=== PATIENT | male | born 1955 | race Caucasian/White ===

== ENCOUNTER 2024-09-09 08:37 | Outpatient (RCR) | payer MEDICARE, SELFPAY ==
--- NOTE | 2024-09-09 10:20 | CTCCONSULT_ITS ---
[facility] [address] [place], [place] [address] Consultation Note Date: 09/09/2024 MR#: [id number] Name: ILAN SETH : 1955 Dx: C61 Malignant neoplasm of prostate Attending physician. Kaylie Parks [employer] Referring physician. Yoshi Malone MD Reason for consultation. Patient with prostate CA diagnosis, PSA 19.6 [place] group 2 referred to the cancer treatment center. History present illness. Patient is a gentleman with symptoms of prostatism underwent biopsy of his prostate Biopsy 02/26/2024 Del group 2 grade 7(3+4) in right lobe. Left lobe negative. . PSA 6 26 24 19.46. Had not had any recent imaging studies but prior Abdominal CT 08/18/2022 primary hepatocellular disease no sign of mets. Has C-spine MRI and plain x-ray showing postop changes from prior cervical surgery degenerative changes June 2023. Was given the choice of having radical surgery and radiation and patient chose to have radiation therapy. Patient is currently seeing Dr. Malone who initiated Lupron injection 2 weeks ago. Patient has not had any imaging studies done this year. Patient now referred for radiation therapy consultation. Past Medical History: COPD prostatism Meds. Sargeant 10 twice daily Xanax Flomax Allergies none to meds Social History: Patient lives with sister; has recently quit heavy smoking; drinks 4 beers a day marijuana as needed Review of Systems: Weight gain due to reduced smoking. Physical Exam: General: Adequate nourished appearing gentleman in no acute distress HEENT: Atraumatic normocephalic extraocular muscle intact no oral lesion no cervical or supraclavicular adenopathy CV: Chest clear to auscultation heart regular rate and rhythm ABD: Soft no organomegaly or tenderness EXT: No cyanosis clubbing or edema Assessment:1. PSA 19.6 group 2 prostate CA grade7 (3+4) right lobe 2. Has been initiated on Lupron injections ADT under Dr. Malone's direction. 3. No recent radiographs, and bone scan and CT scan will be ordered now. 4. Discussed patient about radiation therapy to the pelvis prostate region in the absence of distant mets. Will see patient after radiographs completed. 5. Thank you very much for allowing me to evaluate this patient. Cc: ABELINO Bryan MD Electronically signed by: Tim Diana MD, DABR 09/09/2024 10:17 AM
== END 2024-10-03 23:59 | disposition home or self-care (01) ==
LOC: SCTC 08:37
PROVIDERS: Referring Provider Surgery; Visit Provider Radiology Therapeutic Radiology
DX: C61 Malignant neoplasm of prostate (principal); Z79.818 Long term (current) use of other agents affecting estrogen receptors and estrogen levels
CPT/HCPCS: 99213; G0463

== ENCOUNTER → 2024-09-24 | Outpatient (CLI) | payer MEDICARE, SELFPAY ==
--- NOTE | 2024-09-24 12:30 | XR_ITS ---
Examination: Bone scan whole body, radioisotope Date and time of exam: September 24, 2024 1241 hours INDICATIONS: Diagnosis malignant neoplasm prostate this month, staging Technique: Study has been performed with intravenous administration of 26 mci 99M technetium MDP. Anterior, posterior whole body images are obtained. Images have been obtained including the lower extremities. Findings: Increased isotope accumulation posterior lower right rib, likely the 11th rib Minor asymmetric uptake about the feet IMPRESSION: Positive bone scan but nonspecific Recommend right rib series follow-up
== END | disposition home or self-care (01) ==
PROVIDERS: PCP Nurse Practitioner Family; Referring Provider Radiology Therapeutic Radiology; Visit Provider Radiology Therapeutic Radiology
DX: R93.7 Abnormal findings on diagnostic imaging of other parts of musculoskeletal system (principal); C61 Malignant neoplasm of prostate
CPT/HCPCS: 78306; A9503

== ENCOUNTER → 2024-10-02 | Outpatient (CLI) | payer MEDICARE, SELFPAY ==
--- NOTE | 2024-10-02 13:00 | XR_ITS ---
Examination: CT abdomen with intravenous contrast CT pelvis with intravenous contrast 2-D coronal reconstructions 2-D sagittal reconstructions Date and time of exam:October 02, 2024 at 1304 hrs. Indications: Diagnosis malignant neoplasm prostate, elevated PSA, history infrarenal abdominal aortic aneurysm AP dimension 4.0 cm mediolateral dimension 4.[address] study August 18, 2022. CTDI: vol (mGy) 26.9 DLP: (mGycm) 1090 Technique: Multiple axial sections of the abdomen and pelvis have been obtained. 64 slice high-resolution scanner used. 3 mm axial sections have been obtained, post intravenous injection 60 cc Isovue-370 2-D sagittal, coronal reconstructions obtained. Low dose protocols were performed. One or more of the following dose reduction techniques were used; automated exposure control, adjustment of the mA and/or KV according to patient size, use of iterative reconstruction technique. Findings: Diffuse fatty infiltration throughout the liver No gallstones Spleen is not enlarged No pancreatic or adrenal mass No hydronephrosis Infrarenal abdominal aortic aneurysm, AP dimension 4.3 cm mediolateral dimension 4.0 cm Normal appendix No bowel obstruction Colonic diverticulosis, no diverticulitis. Normal seminal vesicles AP prostate dimension 3.3 cm Prostate calcifications Mild thickening of urinary bladder wall No abdominal or pelvic lymphadenopathy Grade 1 spondylolisthesis L5 on S1 Negative for osteoblastic metastases Impression: Infrarenal abdominal aortic aneurysm as above No findings of metastatic disease
== END | disposition home or self-care (01) ==
LOC: SCAT 12:36
PROVIDERS: PCP Nurse Practitioner Family; Referring Provider Radiology Therapeutic Radiology; Visit Provider Radiology Therapeutic Radiology
DX: I71.43 Infrarenal abdominal aortic aneurysm, without rupture (principal); C61 Malignant neoplasm of prostate
CPT/HCPCS: 74177; A4649; Q9967

== ENCOUNTER → 2024-10-07 | Outpatient (CLI) | payer MEDICARE, SELFPAY ==
--- NOTE | 2024-10-07 09:15 | XR_ITS ---
Examination: Ribs, right, with PA chest, 5 views Technique: Chest PA, RIBS AP, RPO, LPO, AP coned lower ribs 5 views Exam date and time: October 07, 2024 0921 hours INDICATIONS: Right lower rib pain beginning one month ago Findings: Normal heart size No pneumothorax Moderate osteopenia No acute rib fractures No findings diagnostic for rib metastatic disease IMPRESSION: No active disease
== END | disposition home or self-care (01) ==
LOC: SDIM 09:08
PROVIDERS: PCP Nurse Practitioner Family; Referring Provider Radiology Therapeutic Radiology; Visit Provider Radiology Therapeutic Radiology
DX: R07.81 Pleurodynia (principal); C61 Malignant neoplasm of prostate
CPT/HCPCS: 71101

== ENCOUNTER 2024-11-03 09:26 | Outpatient (RCR) | payer MEDICARE, SELFPAY ==
--- NOTE | 2024-10-07 09:04 | CTCFLWUP_ITS ---
[facility] [address] [place], [place] [address] FOLLOW-UP NOTE Date: 10/07/2024 MR#: [id number] Name: ILAN SETH : Dx: C61 Malignant neoplasm of prostate Identification. Patient was prostate CA PSA 19.6 group 2 biopsy performed 02/26/2024 Receiving Lupron injections under Dr. Malone's direction. Bone scan 09/24/2024 nonspecific uptake right lower lobe rib otherwise unremarkable. CT scan 10/02/2024 no met disease. Patient just took his second monthly Lupron injection. Most recent lab 09/30/2024 PSA 3.0 Told patient about radiation therapy including the pelvis and prostate region lasting 7 to 8 weeks. Will get x-ray of his right lower rib cage prior to starting treatment. Electronically signed by: Tim Diana M.D. 10/07/2024 9:01 AM
--- NOTE | 2024-10-07 09:04 | CTCTXPLN_ITS ---
[facility] [address] [place], [place] [address] Physician Clinical Treatment Planning Note Date of Service: 10/07/2024 Name: ILAN SETH : 1955 The patient has agreed to proceed with Radiation therapy. Tests and supporting medical records were interpreted to assist in defining the tumor location and extent of disease. Further imaging will be necessary to contour and delineate the volume to which the XRT will be provided. A. Treatment Intent: Curative B. Modality: 10 MV C. Requested Technique: VMAT D. Treatment Site: Pelvis prostate E. Critical structures to be contoured on plan: F. In order to accomplish this plan, I am ordering/Prescribing the followin. Simulations (s) will be performed to accomplish a reproducible treatment position, to determine optimal treatment portals/beam arrangements, to design beam modifying devices and verify treatment portals on patient prior to the commencement of Radiation Therapy. Pelvis 2. Devices; for immobilization and beam shaping: Vac-Yasmeen 3. CT Guidance for placement of XRT grimaldo Scan area: 4. Portal images Frequency: 5. Invivo transit dose measurement once per week on all VMAT patients. 6. Special Physics Consult Requested for: 7. Other requests: G. Dose Objectives: Curative Electronically signed by: Tim Diana M.D. 10/07/2024 9:01 AM
--- NOTE | 2024-10-07 09:05 | CTCTXPLNST_ITS ---
Radiation Oncology Treatment Planning Sheet Name: ILAN SETH MR#: [id number] : 1955 Dx: C61 Malignant neoplasm of prostate Date of Service: 10/07/2024 Account #: ?? Pt Treatment Intent: curative palliative other: Stage: Procedure CPT # Ordered Spec. Procedure 92391 Ruano Complex (set-up) 95098 pelvis 2 Ruano Simple 19416 IMRT Plan 28849 2 MLC Devices VMAT 93817 6 Ruano 3 D 69614 TRTMT dev Complex 19199 vaklok 1 TRTMT dev simple 59762 Basic Prasanna 79866 15 Special Dosimetry 54521 Spec Physics 94772 Port Films 40023 SRS Cranial/1FX 79136 SBR 5 FX or Less /ex: 5 = 5 fx 39324 IMRT Simple 42192 7560 42 IMRT Complex 21033 IGRT 94951 40 Rad del com 6-10 07979 Rad del com 11-19 20119 Cont Med Physics 77524 8 Treatment Planning 71362 1 Rad del com 20 mev 72760 Rad del inter 6-10 39666 Rad del inter 11-19 30558 Rad del simple 6-10 68086 Rad del simple 11-19 43972 Special Port Plan 91899 TRTMT dev inter 59270 Isodose Complex 70054 Isodose simple 91639 Resp Motion Mgmt Simulation 91437 Placement of Fiducial Markers 47075 Electronically Signed By: Tim Diana MD, DABR 10/07/2024 9:03 AM
--- NOTE | 2024-10-27 12:41 | CTCTRTNOTE_ITS ---
[facility] [address], [place] [address] Weekly Management Date: 10/27/2024 ?? Name: ILAN SETH : 1955 A. Patient is currently at 720 cGy. B. Patient is tolerating treatment well. C. Resume radiation therapy. Electronically signed by: Tim Diana M.D. 10/27/2024 12:39 PM
== END 2024-11-03 23:59 | disposition home or self-care (01) ==
LOC: SCTC 09:26
PROVIDERS: PCP Nurse Practitioner Family; Referring Provider Radiology Therapeutic Radiology; Visit Provider Radiology Therapeutic Radiology
DX: Z51.0 Encounter for antineoplastic radiation therapy (principal); C61 Malignant neoplasm of prostate; Z79.818 Long term (current) use of other agents affecting estrogen receptors and estrogen levels
CPT/HCPCS: 77014; 77290; 77300; 77301; 77334; 77336; 77338; 77385; 99213; G0463

== ENCOUNTER 2024-12-03 08:35 | Outpatient (RCR) | payer MEDICARE, SELFPAY | END 2024-12-03 23:59 | disposition home or self-care (01) | LOC: SCTC 08:35 | PROVIDERS: PCP Nurse Practitioner Family; Referring Provider Nurse Practitioner Family; Visit Provider Radiology Therapeutic Radiology | DX: Z51.0 Encounter for antineoplastic radiation therapy (principal); C61 Malignant neoplasm of prostate | CPT/HCPCS: 77014; 77290; 77300; 77301; 77336; 77338; 77385 ==

== ENCOUNTER 2025-01-01 09:00 | Outpatient (RCR) | payer MEDICARE, SELFPAY | END 2025-01-03 23:59 | disposition home or self-care (01) | LOC: SCTC 09:00 | PROVIDERS: PCP Nurse Practitioner Family; Referring Provider Nurse Practitioner Family; Visit Provider Radiology Therapeutic Radiology | DX: Z51.0 Encounter for antineoplastic radiation therapy (principal); C61 Malignant neoplasm of prostate | CPT/HCPCS: 77336; 77385; 99212; G0463 ==

== ENCOUNTER 2025-02-18 07:59 | Outpatient (RCR) | payer MEDICARE, SELFPAY ==
--- NOTE | 2025-02-18 08:35 | CTCFLWUP_ITS ---
[facility] [address] [place], [place] [address] FOLLOW-UP NOTE Date: 02/18/2025 MR#: [id number] Name: ILAN SETH : 1955 Dx: C61 Malignant neoplasm of prostate Identification. Patient with PSA 19.6 group 2 grade 7 right lobe prostate. Took monthly Lupron injections for 3 months. According the patient but not in the last 2 months. Having frequency nocturia taking medications ordered by Dr. Ralph. Will check PSA and inform patient regarding this. If this is in the low normal range I will see him again in 6 months time. Electronically signed by: Tim Diana M.D. 02/18/2025 8:33 AM
== END 2025-03-05 23:59 | disposition home or self-care (01) ==
LOC: SCTC 07:59
PROVIDERS: PCP Nurse Practitioner Family; Referring Provider Nurse Practitioner Family; Visit Provider Radiology Therapeutic Radiology
DX: C61 Malignant neoplasm of prostate (principal); Z79.818 Long term (current) use of other agents affecting estrogen receptors and estrogen levels
CPT/HCPCS: 99212; G0463

== ENCOUNTER → 2025-03-11 | Outpatient (CLI) | payer MEDICARE, MEDICAID, SELFPAY ==
--- NOTE | 2025-03-11 11:50 | XR_ITS ---
Examination: Shoulder,right, 3 views Technique: Shoulder AP internal rotation, AP external rotation, Y view shoulder, 3 views Exam date and time :March 11, 2025 1151 hours INDICATIONS: Right shoulder pain beginning 5 days ago. FINDINGS: Advanced osteoarthritis glenohumeral joint joint Obliteration of the space between the acromium and humeral head seen with full-thickness rotator cuff tear No fracture IMPRESSION: Advanced osteoarthritis glenohumeral joint Suspicious for full-thickness rotator cuff tear
== END | disposition home or self-care (01) ==
LOC: SDIM 11:43
PROVIDERS: PCP Nurse Practitioner Family; Referring Provider Nurse Practitioner Family; Visit Provider Nurse Practitioner Family
DX: M19.011 Primary osteoarthritis, right shoulder (principal)
CPT/HCPCS: 73030

== ENCOUNTER → 2025-05-18 | Outpatient (CLI) | payer MEDICARE, MEDICAID, SELFPAY ==
--- NOTE | 2025-05-18 09:15 | XR_ITS ---
MRI shoulder, right, without contrast. Date and time: May 18, 2025, 10:40 a.m. INDICATIONS: Worsening right shoulder pain 3 months decreased range of motion joint clicking, status post repair 2014 Technique: Multiple axial, sagittal and coronal sections of the shoulder have been obtained. Siemens high-resolution 1.5 Neetu MRI scanner is utilized. Axial fat-suppressed sections, TR 2350, TE 18 T2-weighted coronal fat-saturated images, TR 3500, TE 7100 T1-weighted coronal images, TR 500, TE 15 T2-weighted sagittal fat-saturated images, TR 3500, TE 57 T1-weighted sagittal sections, TR 504, TE 13. Findings: 40 mm full-thickness rotator cuff tear Subscapularis insertion is intact. Subscapularis bursa is not seen. Long head of the biceps is in the bicipital groove. No definite tear of the biceps superior labral anchor is seen. Retraction of the musculotendinous junction of the rotator cuff is prominent. Distance between the acromium and humeral head is 2 mm Atrophy of the supraspinatus muscle is severe. Atrophy of the infraspinatus muscle is severe. Sagittal sections demonstrate a horizontal acromion. Acromioclavicular joint demonstrates moderate osteoarthritis. Osacromiale is not identified. Moderate to advanced osteoarthritis glenohumeral joint Fraying and irregularity anterior superior posterior labral margins. Bony glenoid fossa on the sagittal sections does not demonstrate osseous defect. Occult fracture or area of avascular necrosis is not seen. Acromioclavicular joint separation is not visible. Defect in the posterolateral margin of the humeral head is not seen Impression: Large full-thickness rotator cuff tear Fraying and irregularity anterior superior labral margins
== END | disposition home or self-care (01) ==
LOC: SMRI 08:55
PROVIDERS: PCP Nurse Practitioner Family; Referring Provider Nurse Practitioner Family; Visit Provider Nurse Practitioner Family
DX: M25.811 Other specified joint disorders, right shoulder (principal); M75.121 Complete rotator cuff tear or rupture of right shoulder, not specified as traumatic
CPT/HCPCS: 73221